=== PATIENT | female | born 1990 | race Caucasian/White ===

== ENCOUNTER 2022-04-26 13:55 | Emergency (ER) | payer OTHER ==
[2022-04-26 14:14] VITALS: BP 102/67; PULSE 78; RESP 20; TEMP 99.2; BMI 22.7
[2022-04-26] MEDS ORDERED: traMADol HCL 50 MG TABLET PO ONE (14:28)
== END 2022-04-26 15:01 | disposition home or self-care (01) ==
LOC: JERFT 13:55
DX: R05.1 Acute cough (principal); H92.03 Otalgia, bilateral; J09.X2 Influenza due to identified novel influenza A virus with other respiratory manifestations
CPT/HCPCS: 0241U-QW; 99283-25